=== PATIENT | male | born 2005 | race Two or more races ===

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

== ENCOUNTER 2023-06-21 09:12 | Outpatient (CLI) | payer OTHER | END 2023-06-21 09:19 | disposition home or self-care (01) | LOC: MRI 09:12 | DX: M08.3 Juvenile rheumatoid polyarthritis (seronegative) (principal); M46.1 Sacroiliitis, not elsewhere classified; M06.872 Other specified rheumatoid arthritis, left ankle and foot | CPT/HCPCS: 72197; 73723 ==

== ENCOUNTER 2023-07-17 14:06 | Outpatient (CLI) | payer OTHER | END 2023-07-17 14:14 | disposition home or self-care (01) | LOC: SONOGRAMA 14:06 | DX: N50.811 Right testicular pain (principal) ==

== ENCOUNTER 2024-10-07 12:30 | Outpatient (CLI) | payer OTHER | END 2024-10-07 12:35 | disposition home or self-care (01) | LOC: MRI 12:30 | PROVIDERS: ATTEND Orthopaedic Surgery | DX: S83.014A Lateral dislocation of right patella, initial encounter (principal); S83.511A Sprain of anterior cruciate ligament of right knee, initial encounter | CPT/HCPCS: 73721 ==

== ENCOUNTER 2025-04-03 08:44 | Outpatient (CLI) | payer OTHER | END 2025-04-03 08:49 | disposition home or self-care (01) | LOC: RAD 08:44 | PROVIDERS: ATTEND Orthopaedic Surgery | DX: S63.511D Sprain of carpal joint of right wrist, subsequent encounter (principal) ==

== ENCOUNTER → 2025-06-24 | Outpatient (CLI) | payer OTHER | END | disposition home or self-care (01) | LOC: RAD 14:55 | PROVIDERS: ATTEND Orthopaedic Surgery | DX: S83.511D Sprain of anterior cruciate ligament of right knee, subsequent encounter (principal) ==